=== PATIENT | male | born 1995 ===

== ENCOUNTER 2018-07-13 19:22 | Emergency (ER) | payer OTHER ==
[2018-07-13] MEDS ORDERED: Pantoprazole 40 MG Tab.CR PO ONE (20:13)
[2018-07-13] MEDS ORDERED: Ondansetron 4 MG Tab.DIS PO ONE (20:13)
--- NOTE | 2018-07-13 20:20 | EDM.PDOC ---
ED HPI GENERAL MEDICAL PROBLEM - General Chief Complaint: Gastrointestinal Problem Stated Complaint: THROWING UP BLOOD Time Seen by Provider: 07/13/18 20:07 - History of Present Illness INITIAL COMMENTS - FREE TEXT/NARRATIVE: HISTORY AND PHYSICAL: History of present illness: The patient is a 22-year-old male who has a history of a cholecystectomy but no other GI history and who says that he since his surgery on his gallbladder has 2 bowel movements a day which are loose and presents today with having nausea and vomiting all day today which initially was clear then bilious and then streaked with brown and blood. The patient says he has some upper abdominal pain but he usually does have some in the right upper quadrant and that is not new or different area the patient says that his stools are not black and bloody. He did not take anything [id number] for the symptoms and said that after the episodes of the nausea and vomiting he went to sleep and then woke up for work and [address] and has tolerated that. He says the only reason why he is here is because work made him come here. He says that he has been drinking fluids and he's been tolerating both the food he ate an hour ago as well as dehydration. Review of systems: As per history of present illness and below otherwise all systems reviewed and negative. Past medical history: As per history of present illness and as reviewed below otherwise noncontributory. Surgical history: As per history of present illness and as reviewed below otherwise noncontributory. Social history: No reported history of drug or alcohol abuse. Family history: As per history of present illness and as reviewed below otherwise noncontributory. Physical exam: General: Well-developed well-nourished man who is nontoxic and vital signs are noted by me HEENT: Atraumatic, normocephalic, negative for conjunctival pallor or scleral icterus, mucous membranes moist, throat clear, neck supple, nontender, trachea midline. Lungs: Clear to auscultation, breath sounds equal bilaterally, chest nontender. Heart: S1S2, regular rate and rhythm no overt murmurs Abdomen: Soft, nondistended, nontender. Negative for masses or hepatosplenomegaly. Slightly hypoactive bowel sounds Pelvis: Stable nontender. Genitourinary: Deferred. Rectal: Deferred. Extremities: Atraumatic, negative for cords or calf pain. Neurovascular unremarkable. Neuro: Awake, alert, oriented. Cranial nerves II through XII unremarkable. Cerebellum unremarkable. Motor and sensory unremarkable throughout. Exam nonfocal. Diagnostics: Patient was offered laboratory evaluation and declines Therapeutics: Patient was offered IV fluids and meds and declines Zofran ODT Protonix by mouth Impression: Vomiting resolved Definitive disposition and diagnosis as appropriate pending reevaluation and review of above. abdominal area Pain Score (Numeric/FACES): 5 - Related Data Allergies Allergy/AdvReac Type Severity Reaction Status Date / Time No Known Allergies Allergy Verified 07/13/18 19:46 Home Meds: Home Meds . [No Known Home Meds] 07/13/18 [History] Past Medical History HEENT History: Reports: None Cardiovascular History: Reports: None Respiratory History: Reports: None Gastrointestinal History: Reports: None Genitourinary History: Reports: None Musculoskeletal History: Reports: None Neurological History: Reports: None Psychiatric History: Reports: None Endocrine/Metabolic History: Reports: None Hematologic History: Reports: None Immunologic History: Reports: None Oncologic (Cancer) History: Reports: None Dermatologic History: Reports: None - Infectious Disease History Infectious Disease History: Reports: None - Past Surgical History Head Surgeries/Procedures: Reports: None GI Surgical History: Reports: Cholecystectomy Social & Family History - Family History Family Medical History: Noncontributory - Tobacco Use Smoking Status *Q: Current Every Day Smoker Years of Tobacco use: 1 Packs/Tins Daily: 0.5 - Caffeine Use Caffeine Use: Reports: Energy Drinks - Recreational Drug Use Recreational Drug Use: No ED ROS GENERAL - Review of Systems Review Of Systems: ROS reveals no pertinent complaints other than HPI. ED EXAM, GENERAL - Physical Exam Exam: See Below (See dictation) Course - Vital Signs Last Recorded V/S: Last Vital Signs Temp 36.8 C 07/13/18 19:47 Pulse 65 07/13/18 19:47 Resp 18 07/13/18 19:47 BP 123/83 07/13/18 19:47 Pulse Ox 98 07/13/18 19:47 - Orders/Labs/Meds Meds: Medications Discontinued Medications Generic Name Dose Route Start Last Admin Trade Name Freq PRN Reason Stop Dose Admin Ondansetron HCl 4 mg 07/13/18 20:13 Zofran Odt PO 07/13/18 20:14 ONETIME ONE Pantoprazole Sodium 40 mg 07/13/18 20:13 Protonix PO 07/13/18 20:14 ONETIME ONE Departure - Departure Time of Disposition: 20:20 Disposition: Home, Self-Care 01 Condition: Good Clinical Impression: Vomiting - Discharge Information Referrals: PCP,None [Primary Care Provider] - Additional Instructions: The following information is given to patients seen in the emergency department who are being discharged to home. This information is to outline your options for follow-up care. We provide all patients seen in our emergency department with a follow-up referral. The need for follow-up, as well as the timing and circumstances, are variable depending upon the specifics of your emergency department visit. If you don't have a primary care physician on staff, we will provide you with a referral. We always advise you to contact your personal physician following an emergency department visit to inform them of the circumstance of the visit and for follow-up with them and/or the need for any referrals to a consulting specialist. The emergency department will also refer you to a specialist when appropriate. This referral assures that you have the opportunity for followup care with a specialist. All of these measure are taken in an effort to provide you with optimal care, which includes your followup. Under all circumstances we always encourage you to contact your private physician who remains a resource for coordinating your care. When calling for followup care, please make the office aware that this follow-up is from your recent emergency room visit. If for any reason you are refused follow-up, please contact the [facility] emergency department at and ask to speak to the emergency department charge nurse. [facility] Primary care- Internal Medicine and Family [address] [address] Push hydration such as Gatorade and water and juices but avoid caffeinated products. Please eat a bland diet for the next 24 hours as we discussed and use medications as prescribed. Return to ER as needed and as discussed. Please call and schedule follow-up appointment in our clinic or with your provider at home as you choose for follow-up care
== END 2018-07-13 20:30 | disposition home or self-care (01) ==
LOC: MW.ED 19:22
DX: K92.0 Hematemesis (principal)
CPT/HCPCS: 99283; A9270; 99282